=== PATIENT | male | born 1980 | race Caucasian/White ===

== ENCOUNTER → 2017-12-20 | Outpatient (CLI) | payer BC ==
[~2017-12-20] MED LIST: AMOCLA500 PO; CYCL10 PO; HYDACE5 PO; Norco 5-325 Ta1 EACH PO; RXHYDACE PO
== END | disposition home or self-care (01) ==
LOC: PLD 10:58 → LAB SHORT 10:58
DX: L57.0 Actinic keratosis (principal); L57.8 Other skin changes due to chronic exposure to nonionizing radiation; L81.4 Other melanin hyperpigmentation
CPT/HCPCS: 88305

== ENCOUNTER → 2018-04-09 | Outpatient (CLI) | payer BC | END | disposition home or self-care (01) | LOC: PLD 07:31 → LAB SHORT 07:31 | DX: D48.5 Neoplasm of uncertain behavior of skin (principal) | CPT/HCPCS: 88304 ==

== ENCOUNTER 2025-08-24 08:27 | Day surgery (SDC) | payer BC ==
[~2025-08-24] VITALS: Ht 177.8 cm; Wt 96.3 kg
[2025-08-24 11:01] VITALS: BP 99/68
== END 2025-08-24 10:58 | disposition home or self-care (01) ==
LOC: ORSCSDS 08:27
PROVIDERS: Surgery
PROC: 0DBP8ZX Excision of Rectum, Via Natural or Artificial Opening Endoscopic, Diagnostic (ICD-10-PCS; principal; 2025-08-24 10:00)
DX: Z12.11 Encounter for screening for malignant neoplasm of colon (principal); K62.1 Rectal polyp; I10 Essential (primary) hypertension; G47.33 Obstructive sleep apnea (adult) (pediatric); R73.9 Hyperglycemia, unspecified; Z87.891 Personal history of nicotine dependence; K57.30 Diverticulosis of large intestine without perforation or abscess without bleeding; K64.8 Other hemorrhoids
CPT/HCPCS: 88305; J2704; J7120